=== PATIENT | male | born 1995 | race Two or more races ===

== ENCOUNTER → 2017-04-21 | Outpatient (CLI) | payer BC ==
--- NOTE | 2017-04-21 16:54 | MR ---
EXAMINATION TYPE: MR brain wo/w con DATE OF EXAM: 04/21/2017 COMPARISON: NONE HISTORY: Social Anxiety CONTRAST: Performed utilizing 10 mL intravenous MultiHance gadolinium contrast. TECHNIQUE: Multiplanar, multiecho imaging on a 3.0 Amy magnet is performed through the brain. Stud y is performed within 24 hours of arrival to the hospital. The craniovertebral junction is normal. The pituitary is normal. Diffusion-weighted imaging is performed. No abnormal hyperintensity is present to suggest an acute i ntracranial infarct or acute ischemic change. Signal through the brain appears normal. Temporal lobes are symmetrical. No abnormal enhancement is e vident. Ventricles and sulci are appropriate for the patient age. IMPRESSIONS: 1. Normal pre and postcontrast MRI brain
== END | disposition home or self-care (01) ==
LOC: RADMRIMAIN 15:35
PROVIDERS: ATTEND Psychiatry & Neurology Psychiatry
DX: R25.9 Unspecified abnormal involuntary movements (principal); R26.9 Unspecified abnormalities of gait and mobility
CPT/HCPCS: 70553; A9577

== ENCOUNTER 2018-12-25 12:10 | Inpatient (IN) | payer BC ==
--- NOTE | 2018-12-25 13:21 | ED ---
General Adult HPI - General Chief complaint: Psychiatric Symptoms Stated complaint: mental health Time Seen by Provider: 12/25/18 12:10 Source: patient, family, RN notes reviewed Mode of arrival: ambulatory Limitations: no limitations - History of Present Illness Initial comments: This is a 23-year-old male who presents emergency Department with a past medical history significant for schizophrenia. 2 weeks ago patient wrote a threatening letter to the government and the FBI showed up at his door today. Patient states he does not know why he did it but he doesn't feel threatening today he doesn't have any desire to hurt himself. Patient states he went and saw a psychiatrist today and the psychiatrist recommended admission so he could be reevaluated to determine if his medications are working. Patient denies any desire to harm anybody or himself. Patient states she's not been drinking he denies any drug use. Patient denies any physical complaints today. - Related Data Home Medications Medication Instructions Recorded Confirmed ARIPiprazole [Abilify] 10 mg PO DAILY 12/25/18 12/25/18 Allergies Allergy/AdvReac Type Severity Reaction Status Date / Time No Known Allergies Allergy Verified 12/25/18 12:12 Review of Systems ROS Statement: Those systems with pertinent positive or pertinent negative responses have been documented in the HPI. ROS Other: All systems not noted in ROS Statement are negative. 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 Patient is nontoxic and well- hydrated and is in no acute distress. ENT: Neck is soft and supple. Neck has full range of motion without eliciting any pain. EYES: The sclera were anicteric and conjunctiva were pink and moist. Extraocular movements were intact and pupils were equal round and reactive to light. Eyelids were unremarkable. PULMONARY: Unlabored respirations. Good breath sounds bilaterally. No audible rales rhonchi or wheezing was noted. CARDIOVASCULAR: There is a regular rate and rhythm without any murmurs gallops or rubs. ABDOMEN: Soft and nontender with normal bowel sounds. SKIN: Skin is clear with no lesions or rashes and otherwise unremarkable. NEUROLOGIC: Patient is alert and oriented x3. Cranial nerves II through XII are grossly intact. Normal speech, volume and content. Symmetrical smile. MUSCULOSKELETAL: Normal extremities with adequate strength and full range of motion. LYMPHATICS: No significant lymphadenopathy is noted PSYCHIATRIC: Patient admits to writing a threatening a letter to the government Limitations: no limitations Course Vital Signs 12/25/18 12:12 Temperature 98.4 F Pulse Rate 85 Respiratory 18 Rate Blood Pressure 144/89 O2 Sat by Pulse 100 Oximetry Medical Decision Making - Lab Data Lab Results 12/25/18 Range/Units 14:25 Urine Opiates Screen Detected H (NotDetected) Ur Oxycodone Screen Not Detected (NotDetected) Urine Methadone Screen Not Detected (NotDetected) Ur Propoxyphene Screen Not Detected (NotDetected) Ur Barbiturates Screen Not Detected (NotDetected) U Tricyclic Antidepress Not Detected (NotDetected) Ur Phencyclidine Scrn Not Detected (NotDetected) Ur Amphetamines Screen Not Detected (NotDetected) U Methamphetamines Scrn Not Detected (NotDetected) U Benzodiazepines Scrn Not Detected (NotDetected) Urine Cocaine Screen Not Detected (NotDetected) U Marijuana (THC) Screen Not Detected (NotDetected) Disposition Clinical Impression: Chronic schizophrenia Disposition: ADMITTED IP TO THIS [facility] Referrals: Nonstaff,Physician [Primary Care Provider] - 1-2 days Time of Disposition: 15:24
[2018-12-25 15:01] LABS: Amphetamine Screen,Urine Not Detected (NotDetected); Barbiturate Screen,Urine Not Detected (NotDetected); Benzodiazepines Screen,Urine Not Detected (NotDetected); Cocaine Screen,Urine Not Detected (NotDetected); Methadone Screen, Urine Not Detected (NotDetected); Opiate Screen,Urine Detected (NotDetected); Oxycodone Screen, Urine Not Detected (NotDetected); Phencyclidine Screen,Urine Not Detected (NotDetected); Tricyclic Antidepressant,Urine Not Detected (NotDetected); Urn Cannabinoid Scrn Not Detected (NotDetected)
[2018-12-25] MEDS ORDERED: ZIPRASIDONE 20 MG VIAL IM PRN (17:11)
[2018-12-25] MEDS ORDERED: LORazepam 1 MG TAB PO PRN (17:11)
[2018-12-25] MEDS ORDERED: MAG HYDROX/AL HYDROX/SIMETH 30 ML CUP PO PRN (17:11)
[2018-12-25] MEDS ORDERED: ACETAMINOPHEN TAB 325 MG TAB PO PRN (17:11)
[2018-12-25] MEDS ORDERED: MAGNESIUM HYDROXIDE 2,400 MG/10 ML CUP PO PRN (17:11)
[2018-12-25] MEDS ORDERED: LORazepam 2 MG/ML INJ IM PRN (17:19)
--- NOTE | 2018-12-25 17:53 | P.MDCNMH ---
History of Present Illness H&P Date: 12/25/18 Chief Complaint: Medical management 23-year-old male with PMH of schizophrenia presents the ED after being brought in for evaluation after sending threatening mail to the [employer]. Patient was seen and examined around 5:45 PM. Patient reports a cough, ongoing for the past week that is dry in nature. He denies any itchy eyes, runny nose or nasal congestion. He denies any fever or chills. He denies any sick contacts. Patient reports that the cough is being progressively getting better. Cough is persistent throughout the day, does not worsen at any particular time. He denies any symptoms of heartburn or ALLERGIC rhinitis. He denies any lower extremity edema or any changes in his exercise tolerance. Patient denies any nausea, vomiting, chest pain, shortness of breath, palpitations, changes in urination or bowel habits. No changes in appetite or weight. No dizziness. No numbness, weakness or tingling of the extremities. Patient has no other complaints at this time. Review of Systems All systems: negative Past Medical History Past Medical History: No Reported History History of Any Multi-Drug Resistant Organisms: None Reported Additional Past Surgical History / Comment(s): wisdom teeth extraction, tumor removed from right ear 2008 Past Psychological History: Anxiety, Schizophrenia Smoking Status: Never smoker Past Alcohol Use History: None Reported Past Drug Use History: None Reported Medications and Allergies Home Medications Medication Instructions Recorded Confirmed Type ARIPiprazole [Abilify] 10 mg PO DAILY 12/25/18 12/25/18 History Allergies Allergy/AdvReac Type Severity Reaction Status Date / Time No Known Allergies Allergy Verified 12/25/18 12:12 Physical Exam Vitals: Vital Signs Temp Pulse Resp BP Pulse Ox 12/25/18 17:10 98 F 12/25/18 16:04 65 16 129/78 100 12/25/18 12:12 98.4 F 85 18 144/89 100 Intake and Output 12/25/18 12/25/18 12/25/18 06:59 14:59 22:59 Other: Weight 84.731 kg General: [non toxic], [no distress], [appears at stated age] Derm: [warm], [dry] Head: [atraumatic], [normocephalic], [symmetric] Eyes: [EOMI], [no lid lag], [anicteric sclera] Mouth: [no lip lesion], [mucus membranes moist] Cardiovascular: [S1S2 reg], [no murmur], [positive posterior tibial pulse bilateral], Lungs: [CTA bilateral], [no rhonchi, no rales] , [no accessory muscle use] Abdominal: [soft], [ nontender to palpation], [no guarding], [no appreciable organomegaly] Ext: [no gross muscle atrophy], [no edema], [no contractures] Neuro: [ CN II-XI grossly intact], [no focal neuro deficits] Psych: [Alert], [oriented], [appropriate affect] Cranial Nerve Examination - Cranial Nerves Cranial Nerve II- Optic: Intact Cranial Nerve III- Oculomotor: Intact Cranial Nerve IV- Trochlear: Intact Cranial Nerve V- Trigeminal: Intact Cranial Nerve - Abducens: Intact Cranial Nerve VII- Facial: Intact Cranial Nerve VIII- Auditory: Intact Cranial Nerve IX- Glossopharyngeal: Intact Cranial Nerve X- Vagus: Intact Cranial Nerve XI- Accessory: Intact Cranial Nerve XII- Hypoglossal: Intact Results Labs: Abnormal Lab Results - Last 24 Hours (Table) 12/25/18 Range/Units 14:25 Urine Opiates Screen Detected H (NotDetected) Assessment and Plan Assessment: Assessment and Plan 1. Cough 2. Schizophrenia 3. DVT and GI prophylaxis 1. Likely secondary to URI, improving as per patient. Cough is dry. Patient denies history of asthma, GERD or ALLERGIC rhinitis. Patient saturating on 100 % on room air. Will continue to monitor. 2. Management as per psychiatry. 3. Early ambulation. Thank you for the consult. Please call with additional questions. Patient instructed to notify staff if his cough worsens.
[2018-12-26 08:37] LABS: Basophils % (A) 1 %; Eosinophils # (A) 0.2 k/uL (0-0.7); Eosinophils % (A) 4 %; HGB 16.4 gm/dL (13.0-17.5); Lymphocytes # (A) 1.6 k/uL (1.0-4.8); Lymphocytes % (A) 37 %; MCH 29.3 pg (25.0-35.0); MCHC 34.8 g/dL (31.0-37.0); MCV 84.3 fL (80.0-100.0); Monocytes # (A) 0.3 k/uL (0-1.0); Monocytes % (A) 7 %; Neutrophils # (A) 2.1 k/uL (1.3-7.7); Neutrophils % (A) 47 %; Platelet Count 233 k/uL (150-450); RBC 5.58 m/uL (4.30-5.90); RDW 12.5 % (11.5-15.5); WBC 4.4 k/uL (3.8-10.6)
[2018-12-26] MEDS: ARIPiprazole 10 MG TAB PO SCH (08:40)
[2018-12-26 09:00] LABS: ALT 43 U/L (21-72); AST 25 U/L (17-59); Albumin 4.5 g/dL (3.5-5.0); Alkaline Phosphatase 74 U/L (38-126); Anion Gap 9 mmol/L; Blood Urea Nitrogen 13 mg/dL (9-20); Calcium 9.8 mg/dL (8.4-10.2); Carbon Dioxide 27 mmol/L (22-30); Chloride 107 mmol/L (98-107); Cholesterol 143 mg/dL (<200); Glucose 103 mg/dL (74-99); HDL Cholesterol 45 mg/dL (40-60); LDL Cholesterol,Calculated 80 mg/dL (0-99); Potassium 4.3 mmol/L (3.5-5.1); Sodium 143 mmol/L (137-145); Total Bilirubin 0.9 mg/dL (0.2-1.3); Total Protein 7.6 g/dL (6.3-8.2); Triglycerides 91 mg/dL (<150)
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
[2018-12-26 17:36] LABS: Hemoglobin A1C 4.6 % (4.0-6.0)
[2018-12-26] MEDS ORDERED: lamoTRIgine 25 MG TAB PO SCH (21:00)
[2018-12-27] MEDS: ARIPiprazole 10 MG TAB PO SCH (09:04)
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
[2018-12-27 18:19] VITALS: BMI 24.6
[2018-12-27] MEDS ORDERED: lamoTRIgine 25 MG TAB PO SCH (21:00)
[2018-12-28] MEDS ORDERED: ARIPiprazole 15 MG TAB PO SCH (09:00)
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
[2018-12-28] MEDS: lamoTRIgine 25 MG TAB PO SCH (21:25)
--- NOTE | 2018-12-29 10:17 | P.PN ---
Progress Note - Text Interval history: The patient is found in group he follows me to an interview room. The patient is admitted with diagnosis of schizophrenia. He states that prior to admission he had sent an alarming message to the [facility] threatening to hijack planes and kill people. He states he was contacted by the FBI. He states he made those statements when he was "not thinking right". He is not able to offer any explanation for sending that email. He denies experiencing any auditory or visual hallucinations. He indicates he feels safe here. He is aware of his current medications specifically the Abilify. He states this was started by his outpatient psychiatrist at 10 mg and is now at 20 mg here on the mental health unit. He states that he was able to sleep somewhat last night appetite stable. He is looking forward to being visited by family this evening. Mental status exam: The patient is alert he is dressed in his own clothing he wears eyeglasses he has adequate hygiene grooming. He seated with a guarded posture he is soft-spoken but does cooperate and is pleasant throughout the session. He maintains a constricted affect. He reports no thoughts of harming himself or others. He states he has no capability of hijacking planes or doing things that he had put in his email. Again he denies experiencing any auditory or visual hallucinations. When asked about different types of delusions he states "all of my thoughts are true". He does demonstrate some mild degree of confusion during interview especially when asking about thoughts related to the [facility] government etc. He demonstrates no verbal or physical aggressiveness he demonstrates no involuntary repetitive movements. Insight and judgment limited. Plan: The patient will continue on his current psychotropic medications. We will monitor him for safety. He is encouraged to continue participating in the milieu. He requires continued psychiatric hospitalization.
[2018-12-29] MEDS: lamoTRIgine 25 MG TAB PO SCH (20:52)
[2018-12-30 07:00] VITALS: TEMP 97.6
--- NOTE | 2018-12-30 12:50 | P.PN ---
Progress Note - Text Interval history: The patient is found in his room seated upright on his bed in the dark he follows me to an interview room. He states his mood is good. He indicates he had a visit from his mother last evening. He states she told him he can never do this again in terms of sending those emails. He states that he would never do that again. He has no questions or concerns regarding his medication he has been compliant with medication. There've been no reports of any behavioral disturbance. Mental status exam: The patient is alert he seated calmly in the chair. He does make eye contact when speaking but otherwise looks down. He reports no suicidal or homicidal ideation intent or plan. He is reporting no auditory or visual hallucinations or any specific delusions. He indicates his mood is good but his affect is bland with little expression. He demonstrates no verbal or physical aggressiveness he demonstrates no involuntary repetitive movements. Insight and judgment slowly improving. Plan: The patient will continue on his current psychotropic medication. We will monitor him for safety. He is encouraged to fully comply with the milieu. Vital signs reviewed.
[2018-12-30] MEDS: lamoTRIgine 25 MG TAB PO SCH (21:08)
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
[2018-12-31 17:46] LABS: Appearance,Urine Turbid (Clear); Color,Urine Yellow; PH, Urine 7.5 (5.0-8.0); Protein,Urine Negative (Negative); Specific Gravity,Urine 1.013 (1.001-1.035)
[2018-12-31 17:47] LABS: Amorphous Sediment,Urine Few /hpf; Bilirubin,Urine Negative (Negative); Blood,Urine Negative (Negative); Glucose,Urine (UA) Negative (Negative); Ketones,Urine Negative (Negative); Leukocyte Esterase,Urine Negative (Negative); Mucus,Urine Rare /hpf; Nitrite,Urine Negative (Negative); Urobilinogen,Urine <2.0 mg/dL (<2.0)
[2018-12-31] MEDS: ARIPiprazole 15 MG TAB PO SCH (20:39)
[2018-12-31] MEDS: lamoTRIgine 100 MG TAB PO SCH (20:39)
--- NOTE | 2019-01-01 12:52 | P.PN ---
Progress Note - Text Interval history: The patient is found in his room he follows me to an interview room. He indicates his mood is fine. He was found in his room lying in bed in the dark. He states he's been making an effort to go to groups but staff report he is predominantly quiet in group. He is endorsing no symptoms. He is worried that his parents will be mad that the Abilify dosage was increased about 10 mg. We discussed the appropriate doses of that medication and his concerns were addressed. He states that he is often quiet because he doesn't know what to say around others. He states he does want to interact with others. He states his parents will often be mad at him because he doesn't speak to other family members but he will quietly listen. He endorses feelings of jealousy that his brother who is 4 years younger seems to be held in higher regard. We discussed some of his future goals and he hopes to gain employment in any capacity. Mental status exam: The patient alert he is easily directed is cooperative. He is dressed in his own clothing hygiene grooming adequate he's wearing his eyeglasses. Speech is not spontaneous but he does answer questions asked of him quietly. He denies having any suicidal or homicidal ideation he reports no auditory or visual hallucinations or any specific delusions. He is somewhat guarded he demonstrates no verbal or physical aggressiveness. Insight and judgment limited. He demonstrates no involuntary repetitive movements. He does not appear hypomanic or manic. Plan: The patient will continue on the Abilify this is just been titrated to 30 mg daily. I was informed that the plan is to transition him to Abil[facility]. We will monitor him for safety and encourage participation in the milieu. Vital signs reviewed.
[2019-01-01] MEDS: ARIPiprazole 15 MG TAB PO SCH (20:07)
[2019-01-01] MEDS: lamoTRIgine 100 MG TAB PO SCH (20:07)
[2019-01-02 06:49] VITALS: BP 133/89; PULSE 63; RESP 14
--- NOTE | 2019-01-02 10:27 | P.DS ---
Providers Date of admission: 12/25/18 17:06 Expected date of discharge: 01/02/19 Attending physician: Amilcar Rosado DO Consults: 12/25/18 17:11 Consult Physician Routine Consulting Provider: Kyle Physician Consult Reason/Comments: H&P and medical Do you want consulting provider notified?: Yes Primary care physician: Physician Nonstaff - Discharge Diagnosis(es) (1) Schizoaffective disorder Current Visit: Yes Status: Acute Priority: High Hospital Course: Brief summary of admission note: This patient is a 23-year-old single male who was admitted to the mental health unit through the emergency room for worsening symptoms of psychosis. He was evaluated by Dr. Rosado. It appears the patient had written a threatening email to the [facility] and FBI came to his door to investigate. The patient indicated he didn't know why he wrote it and stated he had no thoughts of harming others. He saw his outpatient psychiatrist and was referred to the hospital for admission. Per Dr. Rosado's note the patient had written he was going to hijack airplanes and that people were going to he had threatened to find people and kill them. For full details please refer to the psychiatric evaluation dated 12/26/2018. Summary of hospital course: The patient was admitted to the mental health unit he did sign in voluntarily. His outpatient psychiatrist had Cale started Abilify and the dose was titrated during the course of this stay ultimately to 30 mg daily. The patient was also placed on Lamictal 100 mg daily. He was seen by internal medicine for routine history and physical exam. Social work met with the patient to complete a psychosocial assessment and for discharge planning purposes. We were contacted by the FBI I was informed as part of their investigation. The patient allowed our communication with the FBI. The patient just participated in a support meeting involving his parents. Social work informed me that his parents feel the patient is at baseline and they do not feel he is at imminent risk for harming himself or others. They're comfortable with him returning home. His parents indicated that they will ensure he is compliant with his medications. We discussed the possibility of him using the Abilify maintena injection but the patient does not wish to have the medication injected and states he will comply with the oral form. The patient demonstrated no agitated behavior while here. He has been directable. He indicates he has no thoughts of harming himself or others. Social work will arrange the patient's outpatient follow-up and we agree that the patient may benefit from working with an individual therapist to develop his social skills. Mental status exam: The patient is alert he is dressed in his own clothing he seated calmly. He is pleasant cooperative soft-spoken. He is easily directed during the session. He indicates his mood is good he is hopeful that he will be discharged today. He reports no suicidal ideation intent or plan. He reports no thoughts of harming others specifically stating he has no homicidal ideation intent or plan. He is reporting no auditory or visual hallucinations he is endorsing no specific delusions. He is demonstrating no objective evidence of psychosis at this time. Affect is more expressive appropriately at times he is able to demonstrate appropriate smiling. He demonstrates no verbal or physical aggressiveness he demonstrates no involuntary repetitive movements. He does report future oriented thinking. He is oriented to person place and date. Impressions 1. Schizoaffective disorder Plan: The patient is being discharged from mental health unit today and he will return residing with his parents. His parents will oversee his medication compliance. The patient will continue on Abilify 30 mg daily Lamictal 100 mg daily. He reports no use of alcohol or illicit drugs. He is instructed to continue abstaining from those substances. There is no imminent safety risk at this time he is appropriate for transition back to outpatient care. Social work will arrange outpatient follow-up to include work with an individual psychotherapist. The patient's instructed to return to the hospital with any acute safety concerns. He'll continue working with his outpatient psychiatrist for ongoing medication management. Patient Condition at Discharge: Stable Plan - Discharge Summary New Discharge Prescriptions: New ARIPiprazole [Abilify] 30 mg PO DAILY #30 tab lamoTRIgine [LaMICtal] 100 mg PO 2100 #30 tab Discontinued ARIPiprazole [Abilify] 10 mg PO DAILY Discharge Medication List ARIPiprazole [Abilify] 30 mg PO DAILY #30 tab 01/02/19 [Rx] lamoTRIgine [LaMICtal] 100 mg PO 2100 #30 tab 01/02/19 [Rx] Follow up Appointment(s)/Referral(s): Nonstaff,Physician [Primary Care Provider] - 1-2 days Activity/Diet/Wound Care/Special Instructions: Activity and diet as tolerated. Avoid the use of street drugs and alcohol. Take all medications as prescribed. When you are in need of refills on your medications please contact your medical provider and/or outpatient psychiatrist to have this done. Please go to scheduled outpatient appointment for aftercare treatment. If symptoms return or become worse, call the crisis line at [phone] and/or go to the nearest emergency room for evaluation.
== END 2019-01-02 11:39 | disposition home or self-care (01) | DRG 885 ==
LOC: EC 12:10 → 3MHU 17:06
PROVIDERS: ADMIT Psychiatry & Neurology Psychiatry; ATTEND Psychiatry & Neurology Psychiatry
DX: F20.0 Paranoid schizophrenia (principal); Z79.899 Other long term (current) drug therapy; J06.9 Acute upper respiratory infection, unspecified; F41.9 Anxiety disorder, unspecified
CPT/HCPCS: 80053; 80061; 80306; 81001; 82075; 83036; 84443; 85025; 99285

== ENCOUNTER → 2019-03-07 | Outpatient (CLI) | payer BC ==
[2019-03-07 14:20] LABS: HCT 45.5 % (39.0-53.0); HGB 15.9 gm/dL (13.0-17.5); MCH 29.4 pg (25.0-35.0); MCHC 34.9 g/dL (31.0-37.0); MCV 84.3 fL (80.0-100.0); Mean Platelet Volume 7.1; Platelet Count 206 k/uL (150-450); RDW 12.7 % (11.5-15.5); WBC 4.8 k/uL (3.8-10.6)
[2019-03-07 19:03] LABS: ALT 27 U/L (10-49); Cholesterol 152 mg/dL (0-200); Triglycerides <50.0 mg/dL (0.0-149.0); VLDL Calculation 9.98 mg/dL (5.00-40.00)
[2019-03-08 02:02] LABS: Hemoglobin A1C 4.8 % (4.0-6.0)
== END | disposition home or self-care (01) ==
LOC: LABWHC1 13:10
PROVIDERS: ATTEND Psychiatry & Neurology Psychiatry
DX: R53.83 Other fatigue (principal); Z79.899 Other long term (current) drug therapy
CPT/HCPCS: 36415; 80061; 83036; 84443; 84460; 85027

== ENCOUNTER 2019-08-08 11:59 | Emergency (ER) | payer BC ==
[2019-08-08 12:15] VITALS: BP 128/86; PULSE 74; RESP 16; TEMP 98
--- NOTE | 2019-08-08 13:01 | XR ---
EXAMINATION TYPE: XR ankle complete RT DATE OF EXAM: 08/08/2019 COMPARISON: NONE HISTORY: Pain FINDINGS: Three views of the ankle demonstrate the ankle mortise to be intact and symmetric. The joint spaces are preserved. The osseous structures are intact. IMPRESSION: 1. No definite acute fracture or dislocation, if symptoms persist follow-up study in 7 to 10 days wou ld be suggested.
--- NOTE | 2019-08-08 13:23 | ED ---
General Adult HPI - General Chief complaint: Extremity Injury, Lower Stated complaint: Foot pain Time Seen by Provider: 08/08/19 12:31 Source: patient Mode of arrival: ambulatory Limitations: no limitations - History of Present Illness Initial comments: Patient is a 24-year-old male presenting to the emergency department with a chief complaint of right ankle swelling. Patient reports this has been ongoing issue for approximately 3 months but he is nondistended especially depressed 2 days. Patient reports he notices right ankle swelling after prolonged periods of standing. Patient reports he works at [employer] and does not take breaks often. Patient reports that whenever he returns home he keeps his leg elevated which helps with the swelling. Patient denies any pain along the ankle or the foot. Patient denies any calf tenderness. Patient denies any trauma to the region. Patient denies taking medication to alleviate the symptoms. Patient denies any cough chest pain or shortness of breath. - Related Data Home Medications Medication Instructions Recorded Confirmed ARIPiprazole [Abilify] 30 mg PO HS 08/08/19 08/08/19 Allergies Allergy/AdvReac Type Severity Reaction Status Date / Time No Known Allergies Allergy Verified 08/08/19 17:50 Review of Systems ROS Statement: Those systems with pertinent positive or pertinent negative responses have been documented in the HPI. ROS Other: All systems not noted in ROS Statement are negative. 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 Past Psychological History: Anxiety, Schizophrenia Smoking Status: Never smoker Past Alcohol Use History: None Reported Past Drug Use History: None Reported General Exam Limitations: no limitations General appearance: alert, in no apparent distress Head exam: Present: atraumatic, normocephalic, normal inspection Eye exam: Present: normal appearance, PERRL, EOMI Pupils: Present: normal accommodation ENT exam: Present: normal exam, mucous membranes moist, normal external ear exam Neck exam: Present: normal inspection, full ROM Respiratory exam: Present: normal lung sounds bilaterally Cardiovascular Exam: Present: regular rate, normal rhythm, normal heart sounds Extremities exam: Present: full ROM, normal capillary refill, joint swelling (Right ankle), other (+2 dorsalis pedis and posterior tibialis bilaterally.). Absent: normal inspection (Mild edema near the right ankle. No lacerations or signs of trauma.), tenderness, calf tenderness (Negative was bilaterally.) Back exam: Present: normal inspection, full ROM Neurological exam: Present: alert, oriented X3 Psychiatric exam: Present: normal affect, normal mood Skin exam: Present: warm, intact, normal color Course Vital Signs 08/08/19 12:13 Temperature 98.0 F Pulse Rate 74 Respiratory 16 Rate Blood Pressure 128/86 O2 Sat by Pulse 98 Oximetry Medical Decision Making - Medical Decision Making patient is a 24-year-old male presenting to the emergency department with a chief complaint of right ankle swelling. This has been ongoing issue professed few months that seems to be exacerbated after prolonged periods of standing. Patient does work at [employer] and does stay for at least 8 hours per shift. The swelling appears to resolve after he keeps the leg elevated. Patient has no pain in the region. There is no trauma to the region. Physical examination is remarkable aside from mild nonpitting edema in the right ankle. Patient neurovascularly intact in the right lower extremity. Negative Homans sign. X- ray is unremarkable. I suspect the swelling to be due to improper footwear. Patient advised to obtain new tennis shoes that would enable him to stand with prolonged periods of time. Also advised the patient to keep foot elevated whenever he comes home. Haroon wrap was placed. Patient advised to follow-up with orthopedics for treatment regarding the swelling and ankle. Strict return parameters were thoroughly discussed with patient and father who are staying and agreeable. Case discussed with physician. Disposition Clinical Impression: Ankle pain, right Disposition: HOME SELF-CARE Condition: Stable Instructions (If sedation given, give patient instructions): Arthralgia (ED) Additional Instructions: Please follow up with orthopedics. Keep leg elevated above heart level. Please return to emergency department if symptoms worsen. Alternate between Tylenol and ibuprofen for pain control. Is patient prescribed a controlled substance at d/c from ED?: No Referrals: Bc Bateman MD [Primary Care Provider] - 1-2 days Shaun Resendez DO [Medical Doctor] - 1-2 days Time of Disposition: 13:22
== END 2019-08-08 13:31 | disposition home or self-care (01) ==
LOC: EC 11:59
DX: M25.571 Pain in right ankle and joints of right foot (principal); M79.89 Other specified soft tissue disorders; R60.9 Edema, unspecified; F32.9 Major depressive disorder, single episode, unspecified; F20.9 Schizophrenia, unspecified; F41.9 Anxiety disorder, unspecified; Z79.899 Other long term (current) drug therapy
CPT/HCPCS: 99283

== ENCOUNTER 2019-08-08 16:42 | Emergency (ER) | payer BC ==
[2019-08-08 16:46] VITALS: RESP 16; TEMP 98.1
[2019-08-08 18:11] LABS: Amphetamine Screen,Urine Not Detected (NotDetected); Barbiturate Screen,Urine Not Detected (NotDetected); Benzodiazepines Screen,Urine Not Detected (NotDetected); Cocaine Screen,Urine Not Detected (NotDetected); Methadone Screen, Urine Not Detected (NotDetected); Opiate Screen,Urine Not Detected (NotDetected); Oxycodone Screen, Urine Not Detected (NotDetected); Phencyclidine Screen,Urine Not Detected (NotDetected); Tricyclic Antidepressant,Urine Not Detected (NotDetected); Urn Cannabinoid Scrn Not Detected (NotDetected)
--- NOTE | 2019-08-08 19:40 | US ---
EXAMINATION TYPE: US venous doppler duplex LE RT DATE OF EXAM: 08/08/2019 7:16 PM COMPARISON: NONE CLINICAL HISTORY: swelling, pain. Swelling/pain in right leg x 3 months. No HX of DVT. Patient is not taking blood thinners. SIDE PERFORMED: Right TECHNIQUE: The lower extremity deep venous system is examined utilizing real time linear array sonog kishore with graded compression, doppler sonography and color-flow sonography. VESSELS IMAGED: External Iliac Vein (EIV) Common Femoral Vein Deep Femoral Vein Greater Saphenous Vein * Femoral Vein Popliteal Vein Small Saphenous Vein * Proximal Calf Veins (* superficial vessels) Right Leg: No evidence of DVT in veins imaged from prox calf veins to EIV. IMPRESSION: No evidence of deep venous thrombosis in the right leg.
--- NOTE | 2019-08-08 20:55 | ED ---
Psych HPI - General Chief Complaint: Psychiatric Symptoms Stated Complaint: EPS eval Time Seen by Provider: 08/08/19 16:45 Source: patient, family Mode of arrival: ambulatory - History of Present Illness Initial Comments: The patient is a 24-year-old male who presents to the emergency department from his psychiatrist office. His father is at bedside. Patient reports that he was sent in by his psychiatry office as he did fill out an evaluation this morning. He did answer one the questions that he was suicidal without a plan. Psychiatrist was concerned and therefore sent him to the emergency room for further evaluation. The patient reports that he did put this on his survey however has no suicidal ideations at this time. He does report to right foot and ankle pain which has made him frustrated. States that's why he was upset at his appointment today. He has been previously evaluated by multiple physicians an urgent cares for this ankle pain. Denies any inciting trauma. Has not been taking any medications at home for the pain. He describes it as a cramping sensation in his ankle which extends up to his right thigh. Denies any warmth, numbness or tingling in his right leg. No history of DVT or PE. No joint swelling. No fevers or chills. Parents are at bedside. They state that the patient is at his baseline functioning status. He was diagnosed with schizophrenia however they reported taking his medications as directed. There are no alleviating, precipitating or or modifying factors - Related Data Home Medications Medication Instructions Recorded Confirmed ARIPiprazole [Abilify] 30 mg PO HS 08/08/19 08/08/19 Allergies Allergy/AdvReac Type Severity Reaction Status Date / Time No Known Allergies Allergy Verified 08/08/19 17:50 Review of Systems ROS Statement: Those systems with pertinent positive or pertinent negative responses have been documented in the HPI. ROS Other: All systems not noted in ROS Statement are negative. Past Medical History Past Medical History: No Reported History History of Any Multi-Drug Resistant Organisms: None Reported Additional Past Surgical History / Comment(s): wisdom teeth extraction, tumor removed from right ear 2008 Past Psychological History: Anxiety, Schizophrenia Smoking Status: Never smoker Past Alcohol Use History: None Reported Past Drug Use History: None Reported General Exam Limitations: no limitations General appearance: alert, in no apparent distress Head exam: Present: atraumatic, normocephalic, normal inspection Eye exam: Present: normal appearance, PERRL, EOMI. Absent: scleral icterus, conjunctival injection, periorbital swelling ENT exam: Present: normal exam, mucous membranes moist Neck exam: Present: normal inspection. Absent: tenderness, meningismus, lymphadenopathy Respiratory exam: Present: normal lung sounds bilaterally. Absent: respiratory distress, wheezes, rales, rhonchi, stridor Cardiovascular Exam: Present: regular rate, normal rhythm, normal heart sounds. Absent: systolic murmur, diastolic murmur, rubs, gallop, clicks GI/Abdominal exam: Present: soft, normal bowel sounds. Absent: distended, tenderness, guarding, rebound, rigid Extremities exam: Present: normal inspection, full ROM, tenderness (right lateral malleolus. Minimal swelling. ), normal capillary refill. Absent: pedal edema, joint swelling, calf tenderness Back exam: Present: normal inspection Neurological exam: Present: alert, oriented X3, CN II-XII intact Psychiatric exam: Present: normal affect, normal mood Skin exam: Present: warm, dry, intact, normal color. Absent: rash Course Vital Signs 08/08/19 08/08/19 16:43 21:15 Temperature 98.1 F Pulse Rate 82 81 Respiratory 16 16 Rate Blood Pressure 133/90 120/73 O2 Sat by Pulse 100 99 Oximetry Medical Decision Making - Medical Decision Making Upon arrival the patient is placed into room 13. He is hooked up to continuous pulse ox and cardiac monitoring. A thorough history and physical exam was performed. The patient has had x-rays performed of his right ankle. He does report pain in his calf and there is some mild swelling in did recommend a Doppler ultrasound. This was performed and was negative. I do not the patient is dilated by the CPS nurse. She does talk to the psychiatrist, the patient and his family members. The patient does not demonstrate any criteria for inpatient admission. The patient is not suicidal at this time. He does complete a safety plan. Parents to contract for safety. They state that he has been more stable now than he has ever been. The patient will follow up with his psychiatrist office. If he has any new or worsening symptoms he should return to the emergency room. He has been given follow-up information for the set making machine operator for his foot pain. The patient was discharged home ambulatory in stable condition - Lab Data Lab Results 08/08/19 Range/Units 17:54 Urine Opiates Screen Not Detected (NotDetected) Ur Oxycodone Screen Not Detected (NotDetected) Urine Methadone Screen Not Detected (NotDetected) Ur Propoxyphene Screen Not Detected (NotDetected) Ur Barbiturates Screen Not Detected (NotDetected) U Tricyclic Antidepress Not Detected (NotDetected) Ur Phencyclidine Scrn Not Detected (NotDetected) Ur Amphetamines Screen Not Detected (NotDetected) U Methamphetamines Scrn Not Detected (NotDetected) U Benzodiazepines Scrn Not Detected (NotDetected) Urine Cocaine Screen Not Detected (NotDetected) U Marijuana (THC) Screen Not Detected (NotDetected) Disposition Clinical Impression: Chronic schizophrenia, Right leg pain Disposition: HOME SELF-CARE Condition: Stable Instructions (If sedation given, give patient instructions): Leg Pain (ED) Additional Instructions: Please follow-up with your psychiatrist. Also follow-up with the set making machine operator regarding your pain. Return to the emergency room for any new or worsening symptoms Is patient prescribed a controlled substance at d/c from ED?: No Referrals: Bc Bateman MD [Primary Care Provider] - 1-2 days Time of Disposition: 20:55
[2019-08-08 21:16] VITALS: BP 120/73; PULSE 81
== END 2019-08-08 21:15 | disposition home or self-care (01) ==
LOC: EC 16:42
DX: F20.9 Schizophrenia, unspecified (principal); M79.661 Pain in right lower leg; M79.89 Other specified soft tissue disorders; M79.671 Pain in right foot; M25.571 Pain in right ankle and joints of right foot; M79.651 Pain in right thigh; Z79.899 Other long term (current) drug therapy
CPT/HCPCS: 80306; 82075; 99284